=== PATIENT | female | born 1990 | race Asian ===

== ENCOUNTER 2021-09-27 09:36 | Outpatient (CLI) | payer BC, SELFPAY ==
[2021-09-27 11:09] LABS: Glucose 1 Hour PP 50gm Dose 161 mg/dL
[2021-09-27 11:44] LABS: Hematocrit 33.5 % (37.0-47.0); Mean Corpuscular HGB Conc 32.8 g/dl (32-36); Mean Corpuscular Hemoglobin 32.4 pg (26-34); Mean Corpuscular Volume 98.8 fl (80-100); Platelet Count Result 236 k/mm3 (150-375); Red Blood Count 3.39 M/mm3 (4.2-5.4); White Blood Count 11.3 K/mm3 (4.5-10.0)
[2021-09-27 11:51] LABS: HIV 1/2 Ab P24 Ag Result Negative (Negative)
== END 2021-09-27 09:37 | disposition home or self-care (01) ==
LOC: ANHLAB 09:40
PROVIDERS: PCP Internal Medicine; Visit Provider Obstetrics & Gynecology
DX: Z34.93 Encounter for supervision of normal pregnancy, unspecified, third trimester (principal); Z3A.00 Weeks of gestation of pregnancy not specified
CPT/HCPCS: 36415; 82947; 85027; 86703; G0432

== ENCOUNTER 2021-10-01 09:02 | Outpatient (CLI) | payer BC, SELFPAY ==
[2021-10-01 09:34] LABS: Glucose Fasting Gestational 89 mg/dL (>/=95)
[2021-10-01 11:02] LABS: Glucose 1 Hour Gest 180 mg/dL (>/=180)
[2021-10-01 12:04] LABS: Glucose 2 Hour Gest 158 mg/dL (>/= 155)
[2021-10-01 13:03] LABS: Glucose 3 Hour Gest 96 mg/dL (>/=140)
== END 2021-10-01 09:03 | disposition home or self-care (01) ==
LOC: ANHLAB 09:06
PROVIDERS: PCP Internal Medicine; Visit Provider Obstetrics & Gynecology
DX: R73.09 Other abnormal glucose (principal)
CPT/HCPCS: 36415; 82951; 82952

== ENCOUNTER 2021-11-29 05:00 | Inpatient (IN) | payer OTHER, SELFPAY ==
[2021-11-29] VITALS (88 sets, daily range): BP systolic 88–133; BP diastolic 47–91; PULSE 79–115; RESP 16; TEMP 36.1–36.7; O2SAT 94–100; BMI 28.6
[2021-11-29 06:08] LABS: Basophils Percent Auto 0.2 % (0.2-1.2); Eosinophils Absolute Auto 0.1 K/mm3 (0-0.3); Hematocrit 35.2 % (37.0-47.0); Hemoglobin 11.9 g/dL (12.0-15.0); Immature Granulocyte Absolute 0.06 K/mm3 (0.00-0.031); Immature Granulocyte Percent A 0.6 % (0-0.5); Lymphocytes Absolute Auto 1.87 K/mm3 (0.9-3.2); Lymphocytes Percent Auto 17.7 % (18.3-44.2); Mean Corpuscular HGB Conc 33.8 g/dl (32-36); Mean Corpuscular Hemoglobin 32.7 pg (26-34); Mean Corpuscular Volume 96.7 fl (80-100); Mean Platelet Volume 10.6 fl (7.4-10.4); Monocytes Absolute Auto 0.8 K/mm3 (0.1-0.6); Neutrophils Absolute Auto 7.6 K/mm3 (1.3-6.7); Neutrophils Percent Auto 72.5 % (45.5-73.1); Platelet Count Result 198 k/mm3 (150-375); Red Blood Count 3.64 M/mm3 (4.2-5.4); Red Cell Distribution Width 13.9 % (11.5-14.5); White Blood Count 10.5 K/mm3 (4.5-10.0)
--- NOTE | 2021-11-29 06:24 | WPDANESEPP ---
Anes - Eval Pre Procedure Procedure: Labor epidural Date/Time: 11/29/21 06:24 Surgeon: Meng Preop Diagnosis: Abd pain with contractions Pre Op Diagnosis: Leaking Patient Data Age: 31 Gender: F Height: 1.57 m Weight: 71 kg Last Vital Signs Temp 97 F L 11/29/21 05:14 Pulse 104 H 11/29/21 06:15 BP 119/87 11/29/21 06:15 O2 Del Method Room Air 11/29/21 06:10 Allergies Allergy/AdvReac Type Severity Reaction Status Date / Time No Known Allergies Allergy Verified 08/01/21 08:48 Home Medications Medication Instructions Recorded Confirmed Type vits no.126-ferrous fum tablet PO 06/05/21 11/21/21 History 28 mg iron-folic acid 800 mcg tablet (Classic ) docusate sodium 100 mg capsule 100 mg PO BID #120 caps 10/02/21 11/21/21 Rx (Colace) ferrous sulfate 325 mg (65 mg 325 mg PO DAILY #90 tabs 10/02/21 11/21/21 Rx iron) tablet fluconazole 150 mg tablet 150 mg PO ONCE #1 tablet 11/22/21 11/22/21 Rx (Diflucan) Laboratory Tests 11/29/21 11/29/21 06:02 06:02 WBC 10.5 K/mm3 H K/mm3 (4.5-10.0) RBC 3.64 M/mm3 L M/mm3 (4.2-5.4) Hgb 11.9 g/dL L g/dL (12.0-15.0) Hct 35.2 % L % (37.0-47.0) MCV 96.7 fl fl (80-100) MCH 32.7 pg pg (26-34) MCHC 33.8 g/dl g/dl (32-36) RDW 13.9 % % (11.5-14.5) Plt Count 198 k/mm3 k/mm3 (150-375) MPV 10.6 fl H fl (7.4-10.4) Immature Gran % (Auto) 0.6 % H % (0-0.5) Neut % (Auto) 72.5 % % (45.5-73.1) Lymph % (Auto) 17.7 % L % (18.3-44.2) [place] % (Auto) 8.0 % % (2.6-8.5) Eos % (Auto) 1.0 % % (0-4.4) Baso % (Auto) 0.2 % % (0.2-1.2) Lymph # (Auto) 1.87 K/mm3 K/mm3 (0.9-3.2) [place] # (Auto) 0.8 K/mm3 H K/mm3 (0.1-0.6) Eos # (Auto) 0.1 K/mm3 K/mm3 (0-0.3) Baso # (Auto) 0.0 K/mm3 K/mm3 (0.0-0.1) Abs Immat Gran (auto) 0.06 K/mm3 H K/mm3 (0.00-0.031) Absolute Neuts (auto) 7.6 K/mm3 H K/mm3 (1.3-6.7) Absolute Nucleated RBC 0.0 K/mm3 K/mm3 (0.0-0.012) Nucleated RBC % 0.0 % % (0.0-0.2) RPR Pending Patient hx anesthesia problems: none Family hx anesthesia problems: none Results Review: All pre-operative results and documents have been reviewed as part of the pre-operative evaluation. [facility] Past Medical History Medical History History of anemia Overweight (BMI 25.0-29.9) and not yet delivered Scoliosis Family History Family History Father Diabetes mellitus Father Hypothyroidism Father Kidney disease Mother Hypertension Father Hypertension Social History Social History Smoking status: Never smoker Second hand tobacco smoke exposure: No Alcohol intake: never Substance use: never Additional occupation/education comments: RN Gender identity (if verbalized by the patient): Female Spiritual care concerns: No Exam Day of Procedure 11/29/21 06:24 Patient weight: overweight Airway: Mallampati scale class II
[2021-11-29] MEDS: LACTATED RINGERS 1,000 ML 125 ML IV CONT ×2 (07:00→10:02)
[2021-11-29] MEDS: OXYTOCIN 30 UNITS/NS 500 ML 30 UNITS/500 ML BAG IV CONT (07:00)
--- NOTE | 2021-11-29 07:23 | PM.IMHP ---
H&P: HPI History of Present Illness Date/Time: 11/29/21 06:59 Chief Complaint: leakage of fluid Narrative: Alesia is a 31yo @ 38.0wks who presented to L&D with leakage of fluid since 414, clear. She reports irregular contractions. No VB. Good movement. Her has been complicated by: 1. Elevated glucola; normal 3 hour 2. Mild anemia on iron 3. Covid infection in Review of Systems Review of Systems: All systems reviewed & are unremarkable except as noted in HPI and below PMFSH Past Medical History Medical History History of anemia Overweight (BMI 25.0-29.9) and not yet delivered Scoliosis Family History Family History Father Diabetes mellitus Father Hypothyroidism Father Kidney disease Mother Hypertension Father Hypertension Social History Social History Smoking status: Never smoker Second hand tobacco smoke exposure: No Alcohol intake: never Substance use: never Additional occupation/education comments: RN Gender identity (if verbalized by the patient): Female Spiritual care concerns: No Meds Home Medications and Allergies Home Medications Medication Instructions Recorded Confirmed Type vits no.126-ferrous fum tablet PO 06/05/21 11/21/21 History 28 mg iron-folic acid 800 mcg tablet (Classic ) ferrous sulfate 325 mg (65 mg 325 mg PO DAILY #90 tabs 10/02/21 11/21/21 Rx iron) tablet Allergies Allergy/AdvReac Type Severity Reaction Status Date / Time No Known Allergies Allergy Verified 08/01/21 08:48 Vital Signs Vital Signs - 24 hr 11/29/21 05:18 11/29/21 05:30 11/29/21 05:45 Temperature Pulse Rate 95 99 98 Blood Pressure 106/87 110/85 110/84 Oxygen Delivery 11/29/21 06:00 11/29/21 05:14 11/29/21 06:15 Temperature 97 F L Pulse Rate 96 104 H Blood Pressure 123/90 119/87 Oxygen Delivery 11/29/21 06:10 Temperature Pulse Rate Blood Pressure Oxygen Delivery Room Air Exam Const: General: cooperative, healthy appearing, comfortable and no acute distress Resp: Effort & Inspection: normal respiratory effort Cardio: Rate: regular rate GI: Inspection: normal to inspection GI Palp: No abdominal tenderness and Yes Soft to palpation : Other: FHT's:130's/ mod jamie/ + accels/ occasional mild variable - cat 2 TOCO: ctx's q3-15min Cervix: 3/60/-2 Membranes: SROM, clear 0415 Presentation: cephalic Skin: General skin exam: normal color Neuro: General: patient oriented x3 Extrem: General: normal to inspection Psych: Appearance: grossly normal Affect: normal affect Attitude: cooperative H&P: Results Labs Labs: Short CBC 11/29/21 Range/Units 06:02 WBC 10.5 H (4.5-10.0) K/mm3 Hgb 11.9 L (12.0-15.0) g/dL Hct 35.2 L (37.0-47.0) % Plt Count 198 (150-375) k/mm3 Assessment and Plan Assessment and plan (1) SROM (spontaneous rupture of membranes): Status: Acute Plan - Admit to L&D - Pitocin per protocol - Continuous monitoring; currently reassuring - GBS neg - Anesthesia consult PRN pain
--- NOTE | 2021-11-29 07:24 | WPDHPUPDATE1 ---
History and Physical Update Update Date/Time: 11/29/21 07:24 History and Physical has been reviewed, including an updated exam of the patient. There are NO changes in the patient's condition. Risks, benefits, and alternatives have been discussed and questions answered. Patient agrees to proceed with procedure.
[2021-11-29 10:19] LABS: Rapid Plasma Reagin Non-Reactive (NonReactive)
--- NOTE | 2021-11-29 12:39 | P.PCNOB_ITS ---
OB - Delivery Note Procedure Delivery date: 11/29/21 Events: Other (COVID infection) Delivery augmentation: Rupture of Membranes Delivery monitor: External FHT and External Uterine Route of delivery: Laceration Description: Perineal - 1st Degree Delivery repair: vicryl Specimen: No Quantitative Blood Loss (ml): 300 Anesthesia type: Epidural Disposition: Floor [place] Baby Date of : 11/29/21 Time of : 12:23 Weeks of gestation at delivery: 38 gender: Male Weight (pounds): 6 Weight (ounces): 10 presentation: vertex position: Left Occiput Anterior Placenta delivery description: Expressed Cord Vessel Description: 3 Vessels and Delayed Cord Clamping score one minute: 8 score five minutes: 9 Narrative: Alesia progressed to complete dilation with strong desire to push. She pushed for approximately 5 minutes with good maternal effort. She delivered the head over intact perineum. No nuchal cord was palpated. She easily delivered the infant's shoulders and body without complications. The was immediately placed skin to skin had spontaneous cry. Delayed cord clamping was performed. The umbilical cord was then clamped and cut. Segment of the cord was collected for cord gases. The remaining cord blood was collected for typing. With Pitocin running and gentle downward traction on the cord, the placenta delivered without complications. Small gush of blood was noted and bimanual exam revealed slight atony which responded with bimanual massage. She was examined and a first-degree perineal laceration was noted. He is repaired in the normal fashion using 2-0 Vicryl. Minimal bleeding with good uterine tone was noted. Sponge, lap, instrument, needle counts were correct at the end the procedure. Patient and baby were left bonding in the birthing suite in a stable condition. [facility] Delivery Billing Delivery Delivery: Delivery Charge
[2021-11-29] MEDS: OXYTOCIN 30 UNITS/NS 500 ML 30 UNITS/500 ML BAG 125 UNITS IV CONT (12:58)
[2021-11-29] MEDS: COSYNTROPIN 0.25 MG/ML VIAL 1 MG IV PUSH (14:56)
--- NOTE | 2021-11-29 15:00 | OBPPTRN ---
Patient transferred to post room # 283 via wheelchair. Support person present. Oriented to unit, room, information board, rooming in, admission packet and security measures. Patient verbalizes understanding.
[2021-11-29] MEDS: DOCUSATE SODIUM 100 MG CAPSULE PO (21:27)
[2021-11-30 05:33] LABS: Hematocrit 33.7 % (37.0-47.0); Hemoglobin 11.3 g/dL (12.0-15.0)
[2021-11-30 07:45] VITALS: BP 103/60; PULSE 84; RESP 16; TEMP 36.7; O2SAT 98
--- NOTE | 2021-11-30 08:20 | PM.OBPNVD ---
OB - PN: Subj Subjective Date/time seen: 11/30/21 08:20 Narrative: PPD#1 Alesia reports doing well today. Her bleeding is light. Her pain is controlled. She is tolerating regular diet, voiding, passing gas, and ambulating without issues. She is breast feeding. She would like her son circumcised. She would like to go home today. OB - PN: Obj Data Labs CBC & Chem 7: 11/30/21 05:06 Labs: Laboratory Results - last 24 hr 11/29/21 11/30/21 06:02 05:06 Hgb 11.3 L Hct 33.7 L RPR Non-reactive OB - PN A/P Assessment and Plan (1) Normal vaginal delivery: Code(s): O80 - Encounter for full-term uncomplicated delivery Status: Acute Plan day: 1 Plan: routine care Comments: - Pelvic rest; take meds as prescribed - ER return precautions: fever, n/v/abd pain, bleeding, HTN Time Spent With Patient Time: Total time spent is greater than 50% in coordination of care (as documented) at patient's floor/unit and/or counseling patient: Review of Systems Constitutional: Constitutional: Denies chills, Denies fever(s) and Denies headache(s) Eyes: Eyes: Denies change in vision ENT: Denies dizziness and Denies headache(s) Cardiovascular: Cardiovascular: Denies chest pain, Denies palpitations and Denies dyspnea Respiratory: Respiratory: Denies cough and Denies dyspnea Gastrointestinal: Gastrointestinal: Denies nausea and Denies vomiting Neurologic: Denies dizziness and Denies headache(s) Endocrine: Endocrine: Denies palpitations Exam Const: General: cooperative, comfortable and no acute distress Orientation/consciousness: patient oriented x3 Resp: Effort & Inspection: normal respiratory effort Auscultation: clear to auscultation bilaterally Cardio: Rate: regular rate GI: Inspection: non-distended GI Palp: No abdominal tenderness and Yes Soft to palpation Auscultation: normal bowel sounds : Other: fundus firm Skin: General skin exam: normal color Neuro: General: patient oriented x3 Extrem: General: normal to inspection Psych: Appearance: grossly normal Affect: normal affect Attitude: cooperative
[2021-11-30] MEDS: WITCH HAZEL 40 PADS 1 PAD TOPICAL (09:26)
[2021-11-30] MEDS: MULTIVIT/MIN/PREN/FOL AC/IRON TABLET 1 TAB PO (09:26)
[2021-11-30] MEDS: LANOLIN (LANSINOH) 7.5 GM CREAM 1 APPLIC TOPICAL (09:26)
[2021-11-30] MEDS: DOCUSATE SODIUM 100 MG CAPSULE PO (09:26)
[2021-11-30] MEDS: DIBUCAINE 1% OINTMENT 30 GM TUBE 1 APPLIC TOPICAL (09:26)
--- NOTE | 2021-11-30 09:42 | P.DS_ITS ---
DS: Admitting Diagnosis Discharge Date 11/30/2021 Admitting Diagnosis SROM DS: Discharge Diagnosis Discharge Diagnosis (1) Normal vaginal delivery: Code(s): O80 - Encounter for full-term uncomplicated delivery Status: Acute OB - DS: Summary OB Procedures : Ultrasound OB Procedures Intrapartum: Spontaneous Vag Delivery OB Procedures: : None Peripartum Data Delivery Method: Natural Vaginal Laceration Description: Perineal - 1st Degree complications: none 1: Gender: Male Disposition of : home Status at Discharge Functional status at discharge: independent ambulation Overall status at discharge: patient is back to baseline Time Spent with Patient Time attestation: Total time spent providing and/or coordinating discharge services: Time spent: Less than 30 minutes Exam 2 Const: General: cooperative, comfortable and no acute distress Orientation/consciousness: patient oriented x3 Resp: Effort & Inspection: normal respiratory effort Auscultation: clear to auscultation bilaterally Cardio: Rate: regular rate GI: Inspection: non-distended GI Palp: No abdominal tenderness and Yes Soft to palpation Auscultation: normal bowel sounds : Other: fundus firm Skin: General skin exam: normal color Neuro: General: patient oriented x3 Extrem: General: normal to inspection Psych: Appearance: grossly normal Affect: normal affect Attitude: cooperative DS: Data Data Completed and Pending Labs on day of discharge: Labs from last 24 hours 11/30/21 11/29/21 05:06 06:02 Hgb 11.3 L Hct 33.7 L RPR Non-reactive Discharge Plan Discharge Attending physician on discharge: Melida Fan Discharging Clinician: Melida Fan Anticipated Discharge Date/Time: 11/30/21 12:30 Patient Disposition: Home, Self-Care Activity: may shower and pelvic rest Diet: regular Patient Instructions: Antibiotic Form Stand Alone Forms: General Discharge Information Follow-up/Referrals: Melida Fan MD [Physician] - 4 Weeks Discharge Medications: New acetaminophen [Mapap (acetaminophen)] 325 mg Tablet 650 mg PO Q6H PRN (Reason: Mild Pain (1-3) Or Headache) 10 Days Qty: 60 0RF docusate sodium 100 mg Capsule 100 mg PO BID PRN (Reason: Constipation) 20 Days Qty: 40 0RF ibuprofen 600 mg Tablet 600 mg PO Q6H PRN (Reason: Cramping) 10 Days Qty: 40 0RF Changed Classic 28 mg iron- 800 mcg tablet 1 tablet PO DAILY 90 Days Qty: 90 0RF Discontinued ferrous sulfate 325 mg (65 mg iron) tablet 325 mg PO DAILY Qty: 90 1RF Date of admission: 11/29/21 05:00 Primary Care Provider: Garrick,Latricia Admitting Provider: Melida Fan Attending physician on admission: Melida Fan Condition: Stable
--- NOTE | 2021-11-30 10:47 | WPDANLDPN2 ---
Anes-Prog Note L&D Date/Time: 11/30/21 10:47 Neuro status: Neuro function grossly intact. Vital Signs: Last Vital Signs Temp 36.7 C 11/30/21 07:45 Pulse 84 11/30/21 07:45 Resp 16 11/30/21 07:45 BP 103/60 11/30/21 07:45 Pulse Ox 98 11/30/21 07:45 O2 Del Method Room Air 11/29/21 06:10 Pain score (VAS): 0 I/O: Intake & Output 11/29/21 11/30/21 11/30/21 23:59 07:59 15:59 Intake Total 500 Balance 500 Patient feedback: Patient satisfied with anesthetic care.
--- NOTE | 2021-11-30 12:00 | PC.NURSE ---
Epidural catheter removed per Flores in anesthesia's instruction. Blue tip intact, band-aid placed over site; no drainage/bleeding noted.
[2021-11-30 12:05] VITALS: BP 124/83; PULSE 88; RESP 18; TEMP 36.2; O2SAT 100
--- NOTE | 2021-11-30 14:44 | PC.NURSE ---
[id number] Consulted with patient to assess needs related to . Mother led conversation with her experience with feeding baby so far, states her nipples are sore. Mother has a great history of her first child but it has been years and she needs education reinforced for optimally latching a . Mother works well with her infant with encouragement. is sleepy and reluctant at this time. Mother hand expresses colostrum to encourage . Infant was circumcised this morning and is not interested in eating at this time. Reviewed working with infant, breast, nipples and how to protect the nipples with an optimal deep latch, good positioning, and good hand washing. Encouraged understanding the benefits of skin to skin, responding to feeding cues, frequencies of feeding 8-12 times in 24 hours (approximately 2-3 hours), duration of feedings, milk production, intake/output feeding sheet and signs of adequate intake encouraging swallowing at the breast. Reviewed positioning and alignment, supporting breast, off-centered (asymmetrical latch) and leading with the chin with big open wide gape. There is no latching at this time. placed skin to skin and mother will call when feeding cues are visualized. [id number] RN called to the room to assist. Mother encouraged to bring infant tummy to tummy across her body nice and close to wait for a big, open, wide gape in her chosen cross cradle position. Infant latches suboptimally and RN suggests attempting with a change in position. Infant latched optimally to the left breast in football position. Education given to mother of how to visualize suck/swallow ratios and drinking at the breast. Infant was able to maintain latch without discomfort to mother. Nipple care reviewed with optimal latch and good positioning. Mother hesitates with bring infant to her breast for fear of discomfort. Mother encouraged to be assertive with infant while the mouth is wide open and give infant a mouthful of breast for a deep optimal latch. Mother voiced her experience and plan to feed her infant so far and her ability to independently latch optimally without discomfort. Infant has had appropriate feedings in the last 24 hours meets the outcomes for weight, output and jaundice at this time. Mother states she is confident to continue effectively her infant at home or when to call for assistance and denies any additional assistance or education at this time. Reinforced understanding of milk production, transition of milk, signs of adequate intake, prevention/relief of engorgement, responsive after visualizing feeding cues, the different methods of stimulating to breastfeed 2-3 hours after the start of the last feeding, community resources, medication information reviewed per [employer] and when to call a provider using the resource of the mom and baby guide/[facility] website. Mother voiced understanding of the education shared. Reported to the primary RN.
[2021-12-03 10:19] VITALS: BP 139/78; PULSE 84; RESP 20; TEMP 36.8; O2SAT 99
== END 2021-11-30 15:28 | disposition home or self-care (01) | DRG 560 ==
LOC: ANHLDR 05:31 → ANHOB2 15:23
PROVIDERS: Admitting Provider Obstetrics & Gynecology; PCP Internal Medicine; Visit Provider Obstetrics & Gynecology
DX: O99.02 Anemia complicating childbirth (principal); O70.0 First degree perineal laceration during delivery; Z3A.38 38 weeks gestation of pregnancy; Z37.0 Single live birth; Z86.16 Personal history of COVID-19
CPT/HCPCS: 36415; 85014; 85018; 85025; 86592; 86850; 86900; 86901; A9270; J0834; J2590; J2795; J7120